=== PATIENT | male | born 1980 | race Two or more races ===

== ENCOUNTER 2017-06-18 20:26 | Emergency (ER) | payer BC ==
[2017-06-18 21:10] VITALS: BP 117/61
[2017-06-18] MEDS ORDERED: Doxycycline 100 MG Cap PO ONE (22:35)
--- NOTE | 2017-06-18 22:35 | EDM.PDOC ---
ED HPI GENERAL MEDICAL PROBLEM - General Chief Complaint: Bite:Animal, Insect Stated Complaint: BIT BY SOMETHING ON ARM [id number] Time Seen by Provider: 06/18/17 22:25 Source of Information: Reports: Patient History Limitations: Reports: No Limitations - History of Present Illness INITIAL COMMENTS - FREE TEXT/NARRATIVE: c/o multiple areas of raised boil like spots. Question if from spider bites. Started out with one on head then multiple to right arm and hand. Largest now on rright forearm. Has been hotpacking and after does get clear fluid. Pain increasing today. Right Arm Pain Score (Numeric/FACES): 8 - Related Data Allergies Allergy/AdvReac Type Severity Reaction Status Date / Time No Known Allergies Allergy Verified 06/18/17 21:00 Home Meds: Home Meds . [No Known Home Meds] 03/24/14 [History] Past Medical History - Past Surgical History Musculoskeletal Surgical History: Reports: Arthroscopic Procedure, Other (See Below) Other Musculoskeletal Surgeries/Procedures:: cyst removed from left knee Social & Family History - Family History Family Medical History: Noncontributory - Tobacco Use Smoking Status *Q: Current Every Day Smoker Years of Tobacco use: 22 Packs/Tins Daily: 1.5 - Caffeine Use Caffeine Use: Reports: Soda - Alcohol Use Days Per Week of Alcohol Use: 0 - Recreational Drug Use Recreational Drug Use: No ED ROS GENERAL - Review of Systems Review Of Systems: ROS reveals no pertinent complaints other than HPI. ED EXAM, ANIMAL BITE - Physical Exam Exam: See Below Exam Limited By: No Limitations General Appearance: Alert, No Apparent Distress, Mild Distress Eye Exam: Bilateral Eye: EOMI Ears: Normal External Exam Nose: Normal Inspection Throat/Mouth: Normal Inspection Head: Atraumatic, Normocephalic Respiratory/Chest: No Respiratory Distress Extremities: Redness (right inner forearm) Neurological: Alert, Oriented Psychiatric: Normal Affect Skin Exam: Tattoo(s) (multiple), Other (3mm central lesion right inner forearm raised, pustule surrounding erythema 2cm with tenderness to mid upper arm, dried smaller lesion to hand outer forearm and upper arm on right. ) Course - Vital Signs Last Recorded V/S: Last Vital Signs Temp 98.4 F 06/18/17 21:01 Pulse 67 06/18/17 21:01 Resp 16 06/18/17 21:01 BP 117/61 06/18/17 21:01 Pulse Ox 99 06/18/17 21:01 Departure - Departure Time of Disposition: 22:36 Disposition: Home, Self-Care 01 Condition: Good Clinical Impression: Skin infection - Discharge Information Instructions: Abscess Forms: ED Department Discharge Additional Instructions: doxycycline 100mg one twice daily for 7 days warm pack to area 3 times daily follow up in clinic on Saturday if not improving tylenol or ibuprofen for discomfort.
== END 2017-06-18 22:44 | disposition home or self-care (01) ==
LOC: DL.ED 20:26
DX: L08.9 Local infection of the skin and subcutaneous tissue, unspecified (principal); F17.210 Nicotine dependence, cigarettes, uncomplicated
CPT/HCPCS: 99283; A9270

== ENCOUNTER 2018-01-11 15:34 | Emergency (ER) | payer BC ==
[2018-01-11 15:42] VITALS: BP 122/66
[2018-01-11] MEDS ORDERED: Ibuprofen 800 MG Tab PO ONE (16:01)
--- NOTE | 2018-01-12 12:01 | EDM.PDOC ---
Scribed by Jenny Mane 01/11/18 1631 for Dustin Montgomery MD ED HPI GENERAL MEDICAL PROBLEM - General Chief Complaint: Lower Extremity Injury/Pain Stated Complaint: FOOT PAIN [id number] Time Seen by Provider: 01/11/18 15:39 Source of Information: Reports: Patient, RN, RN Notes Reviewed History Limitations: Reports: No Limitations - History of Present Illness INITIAL COMMENTS - FREE TEXT/NARRATIVE: C/O right toes smashed by trailer tongue at [place] earlier today. Denies any other injury. Onset: Today Duration: Constant Location: Reports: Lower Extremity, Right Quality: Reports: Ache, Throbbing Severity: Severe Improves with: Reports: Immobilization (and elevation) Worsens with: Reports: Other (palpation and wt bearing), Movement Associated Symptoms: Reports: No Other Symptoms Treatments CALCULATION REVIEWER: Reports: NSAIDS Right Feet Pain Score (Numeric/FACES): 10 - Related Data Allergies Allergy/AdvReac Type Severity Reaction Status Date / Time No Known Allergies Allergy Verified 01/11/18 15:46 Home Meds: Home Meds . [No Known Home Meds] 03/24/14 [History] Past Medical History - Past Surgical History Musculoskeletal Surgical History: Reports: Arthroscopic Procedure, Other (See Below) Other Musculoskeletal Surgeries/Procedures:: cyst removed from left knee Social & Family History - Family History Family Medical History: Noncontributory - Tobacco Use Smoking Status *Q: Current Every Day Smoker Years of Tobacco use: 22 Packs/Tins Daily: 1.5 - Caffeine Use Caffeine Use: Reports: Soda - Alcohol Use Days Per Week of Alcohol Use: 0 - Recreational Drug Use Recreational Drug Use: No - Living Situation & Occupation Living situation: Reports: with Family Review of Systems - Review of Systems Review Of Systems: ROS reveals no pertinent complaints other than HPI. ED EXAM, GENERAL - Physical Exam Exam: See Below Exam Limited By: No Limitations General Appearance: Alert, WD/WN, No Apparent Distress Head: Atraumatic, Normocephalic Respiratory/Chest: No Respiratory Distress Peripheral Pulses: 2+: Posterior Tibial (L), Posterior Tibial (R), 3+: Dorsalis Pedis (L), Dorsalis Pedis (R) Extremities: Leg Pain (Rt foot toes 1 & 2 with moderate swelling and bruising, no visible deformity, skin intact.), Limited Range of Motion (Rt 1st & 2nd toes due to swelling, bruising, and pain.), Other (B/L upper exts. and left lower ext. nl to exam). No: Joint Swelling Neurological: Alert, Oriented, No Motor/Sensory Deficits Psychiatric: Normal Mood ED TRAUMA EXTREMITY PROCEDURES - Splinting Right Lower Extremity Splint Site: Right foot Pre-Procedure NV Status: Normal Post-Procedure NV Status: Normal Splint Material: Other (rigid sole postoperative splint shoe) Splint Design: Other (shoe) Applied & Form Fitted By: Nurse Provider Post-Splint Application NV Check: NV Status Normal, Good Position Complications: No Course - Vital Signs Last Recorded V/S: Last Vital Signs Temp 37.6 C 01/11/18 15:41 Pulse 80 01/11/18 15:41 Resp 16 01/11/18 15:41 BP 122/66 01/11/18 15:41 Pulse Ox 100 01/11/18 15:41 - Orders/Labs/Meds Meds: Medications Discontinued Medications Generic Name Dose Route Start Last Admin Trade Name Ross PRN Reason Stop Dose Admin Ibuprofen 800 mg 01/11/18 16:01 01/11/18 16:05 Motrin PO 01/11/18 16:02 800 mg ONETIME ONE Administration - Radiology Interpretation Free Text/Narrative:: IMPRESSION: Normal right foot x-rays. No fracture. Thank you for allowing us to participate in the care of your patient. Dictated and Authenticated by: Phil Adan MD 01/11/2018 4:35 PM Central Time ([place] & [place]) Departure - Departure Time of Disposition: 16:26 Disposition: Home, Self-Care 01 Condition: Good Clinical Impression: Hematoma of toe of right foot Qualifiers: Encounter type: initial encounter Qualified Code(s): S90.121A - Contusion of right lesser toe(s) without damage to nail, initial encounter Contusion of right foot including toes Qualifiers: Encounter type: initial encounter Qualified Code(s): S90.31XA - Contusion of right foot, initial encounter; S90.121A - Contusion of right lesser toe(s) without damage to nail, initial encounter; S90.121A - Contusion of right lesser toe(s) without damage to nail, initial encounter - Discharge Information Instructions: Crush Injury of the Foot, [id number] Referrals: PCP,None [Primary Care Provider] - Forms: ED Department Discharge Additional Instructions: Rest, ice, and elevate right foot to reduce pain and swelling. Wear rigid soled splint shoe for 7 to 10 days. Use crutches as needed for comfort. Use Ibuprofen (Motrin/Advil) 200mg: Take 3 tablets by mouth every six hours as needed for pain. Take with food. Do not exceed 12 tablets (2400mg) in 24 hours. Follow up in clinic if not improving in 10 to 15 days. I have read and agree with the documentation that has been completed regarding this visit. By signing this record, I attest that the documentation was completed in my physical presence and is an accurate record of the encounter.
== END 2018-01-11 16:37 | disposition home or self-care (01) ==
LOC: DL.ED 15:34
DX: S90.31XA Contusion of right foot, initial encounter (principal); S90.121A Contusion of right lesser toe(s) without damage to nail, initial encounter; F17.210 Nicotine dependence, cigarettes, uncomplicated; Z98.890 Other specified postprocedural states; W23.0XXA Caught, crushed, jammed, or pinched between moving objects, initial encounter; Y92.89 Other specified places as the place of occurrence of the external cause
CPT/HCPCS: 73630; 99283; A9270